=== PATIENT | male | born 1935 | race Caucasian/White ===

== ENCOUNTER 2021-11-15 11:10 | Emergency (ER) | payer MEDICARE ==
[2021-11-15] MEDS ORDERED: BABY ASPIRIN 81 MG CHEW PO ONE (11:15)
[2021-11-15 11:29] LABS: Absolute Neutrophil Ct (ANC) 5.02 x10^3/uL (1.4-6.9); Basophil (Absolute #) 0.11 x10^3/uL (0-0.4); Eosinophil % 3.4 % (0.00-5.0); Eosinophil (Absolute #) 0.26 x10^3/uL (0-0.5); Hematocrit 43.2 % (42-50); Hemoglobin 14.7 g/dL (12.5-18.0); Lymphocyte (Absolute #) 1.37 x10^3/uL (1.0-4.6); Lymphocytes % 17.8 % (24.0-44.0); Mean Cell Volume 99.3 fL (78-100); Mean Corpuscular Hemoglobin 33.8 pg (26-32); Mean Platelet Volume 8.5 fL (7.5-11.0); Monocyte (Absolute #) 0.87 x10^3/uL (0.0-1.3); Monocytes % 11.3 % (0.0-12.0); Neutrophil % 65.4 % (36.0-66.0); Platelet Count 271 x10^3/uL (150-450); Red Blood Count 4.35 x10^6/uL (4.1-5.6); Red Cell Distribution Width 13.1 % (11.5-14.0); White Blood Count 7.7 x10^3/uL (4.0-10.5)
--- NOTE | 2021-11-15 11:43 | ERPHSYRPT ---
- History of Present Illness Source: patient Exam Limitations: other (Extremely poor historian) Patient Subjective Stated Complaint: PT states "I woke up this morning with horrible left shoulder, arm and neck pain. I can hardly lift my left arm up it hurts so bad." Triage Nursing Assessment: Pt presented alert and oriented X 3, skin pwd. Pt ambulates with a slow unsteady gait, able to speak in celar full sntences Physician History: 86 yo wm w L shoulder pain since 2:30 AM. He is an extremely poor historian. Pain is 4/10 and woke him up. He denies chest pain and states that pain is worse w L shoulder movement. Pt took a [place] this morning wo relief. He denies dyspnea/N/V/Diaphoresis. Daughter states that he has chronic L shoulder pain. He does not appear to have chest pain but is an extremely poor historian. Pt has a pacer but denies HI. Occurred: other (2:30AM) Method of Injury: other (Chronic L shoulder pain) Quality: constant Severity of Pain-Max: severe Severity of Pain-Current: moderate Extremities Pain Location: shoulder: left Modifying Factors: Improves With: movement Associated Symptoms: neck pain, No back pain, No chills, No chest discomfort, No chest pain, No dyspnea, No fever, No jaw pain, No nausea, No sweating, No short of breath, No vomiting Allergies/Adverse Reactions: No Known Drug Allergies Allergy (Verified 11/15/21 11:19) Home Medications: Apixaban [Eliquis 5 mg Tablet] 5 mg PO BID 11/15/21 [History] Hydrocodone/Acetaminophen [Hydrocodone-Acetamin 10-325 mg] 1 each PO BID 11/15/21 [History] Oxybutynin Chloride 10 mg Xl [Ditropan Xl 10 MG] 10 mg PO DAILY 11/15/21 [History] Tamsulosin HCl 0.4 mg [Flomax 0.4 MG] 0.4 mg PO DAILY 11/15/21 [History] Hx Tetanus, Diphtheria Vaccination/Date Given: Yes Hx Influenza Vaccination/Date Given: Yes Hx Pneumococcal Vaccination/Date Given: No Immunizations Up to Date: Yes Travel Risk - International Travel Have you traveled outside of the country in past 3 weeks: No - Coronavirus Screening Are you exhibiting any of the following symptoms?: No Close contact with a COVID-19 positive Pt in past 14-21 Days: No - Vaccine Status Have you recieved a Covid-19 vaccination: Yes Spa Associate: Unknown - Vaccination Dates Dates if Unknown: 2020 - Review of Systems Constitutional: No Symptoms Eyes: No Symptoms Ears, Nose, & Throat: No Symptoms Respiratory: No Symptoms Cardiac: No Symptoms Abdominal/Gastrointestinal: No Symptoms Genitourinary Symptoms: No Symptoms Musculoskeletal: Arthralgias (L shoulder) Skin: No Symptoms Neurological: No Symptoms Psychological: No Symptoms Endocrine: No Symptoms Hematologic/Lymphatic: No Symptoms Immunological/Allergic: No Symptoms - Past Medical History Pertinent Past Medical History: Yes Neurological History: No Pertinent History ENT History: Cataracts Cardiac History: Coronary Artery Disease, Other Respiratory History: No Pertinent History Endocrine Medical History: No Pertinent History Musculoskeletal History: Arthritis GI Medical History: No Pertinent History History: No Pertinent History Psycho-Social History: No Pertinent History Male Reproductive Disorders: No Pertinent History - Past Surgical History Past Surgical History: Yes Other Surgical History: pacemaker. left leg below knee amputation - Social History Smoking Status: Former smoker Exposure to second hand smoke: No Drug Use: none Patient Lives Alone: No - Nursing Vital Signs Nursing Vital Signs: Initial Vital Signs Temperature 98.6 F 11/15/21 11:11 Pulse Rate 71 11/15/21 11:11 Respiratory Rate 22 11/15/21 11:11 Blood Pressure 149/94 11/15/21 11:11 O2 Sat by Pulse Oximetry 96 11/15/21 11:11 Pain Scale Pain Intensity 0 Hypertensive - Physical Exam General Appearance: no apparent distress Eyes, Ears, Nose, Throat Exam: normal ENT inspection, TMs normal, pharynx normal, moist mucous membranes Neck Exam: normal inspection, non-tender, supple, full range of motion, No Brudzinski, No Kernig's, No meningismus Cardiovascular/Respiratory Exam: chest non-tender, normal breath sounds, regular rate/rhythm, heart sounds normal Abdominal Exam: non-tender, soft Back Exam: normal inspection (No T or L-spine TTP) Shoulder Exam: bone tenderness (L shoulder TTP/Pain w abduction) Elbow/Forearm Exam: normal inspection, non-tender, no evidence of injury Wrist Exam: normal inspection, non-tender, no evidence of injury Hand Exam: normal inspection, non-tender, no evidence of injury Neuro/Tendon Exam: normal sensation, normal motor functions, normal tendon functions, responds to pain, no evidence tendon injury Mental Status Exam: alert, cooperative Skin Exam: normal color, warm, dry SpO2 Interpretation: normal SpO2: 96 O2 Delivery: Room Air - Course Nursing assessment & vital signs reviewed: Yes EKG Interpreted by Me: RATE (NSR/Rate 71/Paced/Prolonged QTc/No acute ST segment changes) - Radiology Exams Chest X-ray Interpretation: Discussed w/ radiologist (Pacer/L shouler prosthesis/Nothing acute) Ordered Tests: Active Orders 24 hr Category Date Time Status EKG-ER Only STAT Care 11/15/21 11:12 Completed CHEST 1 VIEW (PORTABLE) Stat Exams 11/15/21 11:13 Completed CBC W DIFF Stat Lab 11/15/21 11:20 Completed CMP Stat Lab 11/15/21 11:20 Completed MAGNESIUM Stat Lab 11/15/21 11:20 Completed NT PRO BNP Stat Lab 11/15/21 11:20 Completed PROTIME WITH INR Stat Lab 11/15/21 11:20 Completed PTT Stat Lab 11/15/21 11:20 Completed TROPONIN Q3H Lab 11/15/21 11:20 Completed TROPONIN Q3H Lab 11/15/21 14:25 Completed TROPONIN Q3H Lab 11/15/21 17:15 Ordered TROPONIN Q3H Lab 11/15/21 20:15 Ordered TROPONIN Q3H Lab 11/15/21 23:15 Ordered UA W/RFX CULTURE Stat Lab 11/15/21 14:21 Completed Medication Summary Discontinued Medications Generic Name Dose Route Start Last Admin Trade Name Queq PRN Reason Stop Dose Admin Aspirin 324 mg 11/15/21 11:15 11/15/21 11:22 Aspirin 81 Mg Tab.Chew PO 11/15/21 11:16 324 mg STAT ONE Administration Aspirin Confirm 11/15/21 11:51 Aspirin 81 Mg Tab.Chew Administered 11/15/21 11:52 Dose 324 mg .ROUTE .STK-MED ONE Fentanyl Citrate 25 mcg 11/15/21 12:25 11/15/21 12:29 Fentanyl Citrate 100 Mcg/2 Ml* Vial IV 11/15/21 12:26 25 mcg STAT ONE Administration Fentanyl Citrate Confirm 11/15/21 12:27 Fentanyl Citrate 100 Mcg/2 Ml* Vial Administered 11/15/21 12:28 Dose 100 mcg .ROUTE .STK-MED ONE Fentanyl Citrate 25 mcg 11/15/21 15:16 11/15/21 15:24 Fentanyl Citrate 100 Mcg/2 Ml* Vial IV 11/15/21 15:17 25 mcg STAT ONE Administration Fentanyl Citrate Confirm 11/15/21 15:23 Fentanyl Citrate 100 Mcg/2 Ml* Vial Administered 11/15/21 15:24 Dose 100 mcg .ROUTE .STK-MED ONE Ondansetron HCl 4 mg 11/15/21 12:25 11/15/21 12:36 Ondansetron Hcl 4 Mg/2 Ml Vial IV 11/15/21 12:26 4 mg STAT ONE Administration Ondansetron HCl Confirm 11/15/21 12:35 Ondansetron Hcl 4 Mg/2 Ml Vial Administered 11/15/21 12:36 Dose 4 mg .ROUTE .STK-MED ONE Lab/Rad Data: Laboratory Result Diagrams 11/15/21 11:20 11/15/21 11:20 Laboratory Results 11/15/21 11/15/21 11/15/21 Range/Units 14:25 14:21 13:30 WBC (4.0-10.5) x10^3/uL RBC (4.1-5.6) x10^6/uL Hgb (12.5-18.0) g/dL Hct (42-50) % MCV (78-100) fL MCH (26-32) pg MCHC (32-36) g/dL RDW (11.5-14.0) % Plt Count (150-450) x10^3/uL MPV (7.5-11.0) fL Gran % (36.0-66.0) % Immature Gran % (Auto) (0.00-0.4) % Nucleat RBC Rel Count (0.00-0.1) % Eos # (Auto) (0-0.5) x10^3/uL Immature Gran # (Auto) (0.00-0.03) x10^3u/L Absolute Lymphs (auto) (1.0-4.6) x10^3/uL Absolute Monos (auto) (0.0-1.3) x10^3/uL Absolute Nucleated RBC (0.00-0.01) x10^3u/L Lymphocytes % (24.0-44.0) % Monocytes % (0.0-12.0) % Eosinophils % (0.00-5.0) % Basophils % (0.0-0.4) % Absolute Granulocytes (1.4-6.9) x10^3/uL Basophils # (0-0.4) x10^3/uL PT (9.4-12.5) SECONDS INR (0.8-3.0) APTT (25.1-36.5) SECONDS Sodium (137-145) mmol/L Potassium (3.5-5.1) mmol/L Chloride (98-107) mmol/L Carbon Dioxide (22-30) mmol/L Anion Gap (5-15) MEQ/L BUN (9-20) mg/dL Creatinine (0.66-1.25) mg/dL Estimated GFR ML/MIN Glucose (74-106) mg/dL Calcium (8.4-10.2) mg/dL Magnesium (1.6-2.3) mg/dL Total Bilirubin (0.2-1.3) mg/dL AST (17-59) U/L ALT (0-50) U/L Alkaline Phosphatase (38-126) U/L Troponin I 0.017 (0.000-0.034) ng/mL NT-Pro-B Natriuret Pep (0-1800) pg/mL Serum Total Protein (6.3-8.2) g/dL Albumin (3.5-5.0) g/dL Urinalys Dipstick Clnc MAIN LAB Urine Color YELLOW (YELLOW) Urine Appearance CLEAR (CLEAR) Urine pH 6.5 (5-6) Ur Specific [place] 1.010 (1.005-1.025) POC Urine Protein Conf TRACE (Negative) Urine Ketones NEGATIVE (NEGATIVE) Urine Nitrite NEGATIVE (NEGATIVE) Urine Bilirubin NEGATIVE (NEGATIVE) Urine Urobilinogen 0.2 (0-1) mg/dL Urine Leukocytes NEGATIVE (NEGATIVE) Urine WBC (Auto) 0-2 (0-5) /HPF Urine Bacteria (Auto) NONE (NEGATIVE) /HPF Urine RBC NEGATIVE (0-5) Daniel/ul Ur Culture Indicated? NO Urine Glucose NEGATIVE (NEGATIVE) mg/dL Influenza Type A Ag NEGATIVE (NEGATIVE) Influenza Type B Ag NEGATIVE (NEGATIVE) RSV (PCR) NEGATIVE (Negative) SARS-CoV-2 (PCR) POSITIVE A (NEGATIVE) 11/15/21 11/15/21 11/15/21 Range/Units 11:20 11:20 11:20 WBC (4.0-10.5) x10^3/uL RBC (4.1-5.6) x10^6/uL Hgb (12.5-18.0) g/dL Hct (42-50) % MCV (78-100) fL MCH (26-32) pg MCHC (32-36) g/dL RDW (11.5-14.0) % Plt Count (150-450) x10^3/uL MPV (7.5-11.0) fL Gran % (36.0-66.0) % Immature Gran % (Auto) (0.00-0.4) % Nucleat RBC Rel Count (0.00-0.1) % Eos # (Auto) (0-0.5) x10^3/uL Immature Gran # (Auto) (0.00-0.03) x10^3u/L Absolute Lymphs (auto) (1.0-4.6) x10^3/uL Absolute Monos (auto) (0.0-1.3) x10^3/uL Absolute Nucleated RBC (0.00-0.01) x10^3u/L Lymphocytes % (24.0-44.0) % Monocytes % (0.0-12.0) % Eosinophils % (0.00-5.0) % Basophils % (0.0-0.4) % Absolute Granulocytes (1.4-6.9) x10^3/uL Basophils # (0-0.4) x10^3/uL PT 11.4 (9.4-12.5) SECONDS INR 1.08 (0.8-3.0) APTT 28.5 (25.1-36.5) SECONDS Sodium 137 (137-145) mmol/L Potassium 3.9 (3.5-5.1) mmol/L Chloride 102 (98-107) mmol/L Carbon Dioxide 26 (22-30) mmol/L Anion Gap 12.2 (5-15) MEQ/L BUN 14 (9-20) mg/dL Creatinine 1.16 (0.66-1.25) mg/dL Estimated GFR > 60.0 ML/MIN Glucose 118 H (74-106) mg/dL Calcium 9.1 (8.4-10.2) mg/dL Magnesium 2.0 (1.6-2.3) mg/dL Total Bilirubin 0.70 (0.2-1.3) mg/dL AST 22 (17-59) U/L ALT 15 (0-50) U/L Alkaline Phosphatase 65 (38-126) U/L Troponin I 0.020 (0.000-0.034) ng/mL NT-Pro-B Natriuret Pep 472 (0-1800) pg/mL Serum Total Protein 6.3 (6.3-8.2) g/dL Albumin 3.4 L (3.5-5.0) g/dL Urinalys Dipstick Clnc Urine Color (YELLOW) Urine Appearance (CLEAR) Urine pH (5-6) Ur Specific [place] (1.005-1.025) POC Urine Protein Conf (Negative) Urine Ketones (NEGATIVE) Urine Nitrite (NEGATIVE) Urine Bilirubin (NEGATIVE) Urine Urobilinogen (0-1) mg/dL Urine Leukocytes (NEGATIVE) Urine WBC (Auto) (0-5) /HPF Urine Bacteria (Auto) (NEGATIVE) /HPF Urine RBC (0-5) Daniel/ul Ur Culture Indicated? Urine Glucose (NEGATIVE) mg/dL Influenza Type A Ag (NEGATIVE) Influenza Type B Ag (NEGATIVE) RSV (PCR) (Negative) SARS-CoV-2 (PCR) (NEGATIVE) 11/15/21 Range/Units 11:20 WBC 7.7 (4.0-10.5) x10^3/uL RBC 4.35 (4.1-5.6) x10^6/uL Hgb 14.7 (12.5-18.0) g/dL Hct 43.2 (42-50) % MCV 99.3 (78-100) fL MCH 33.8 H (26-32) pg MCHC 34.0 (32-36) g/dL RDW 13.1 (11.5-14.0) % Plt Count 271 (150-450) x10^3/uL MPV 8.5 (7.5-11.0) fL Gran % 65.4 (36.0-66.0) % Immature Gran % (Auto) 0.7 H (0.00-0.4) % Nucleat RBC Rel Count 0.0 (0.00-0.1) % Eos # (Auto) 0.26 (0-0.5) x10^3/uL Immature Gran # (Auto) 0.05 H (0.00-0.03) x10^3u/L Absolute Lymphs (auto) 1.37 (1.0-4.6) x10^3/uL Absolute Monos (auto) 0.87 (0.0-1.3) x10^3/uL Absolute Nucleated RBC 0.00 (0.00-0.01) x10^3u/L Lymphocytes % 17.8 L (24.0-44.0) % Monocytes % 11.3 (0.0-12.0) % Eosinophils % 3.4 (0.00-5.0) % Basophils % 1.4 (0.0-0.4) % Absolute Granulocytes 5.02 (1.4-6.9) x10^3/uL Basophils # 0.11 (0-0.4) x10^3/uL PT (9.4-12.5) SECONDS INR (0.8-3.0) APTT (25.1-36.5) SECONDS Sodium (137-145) mmol/L Potassium (3.5-5.1) mmol/L Chloride (98-107) mmol/L Carbon Dioxide (22-30) mmol/L Anion Gap (5-15) MEQ/L BUN (9-20) mg/dL Creatinine (0.66-1.25) mg/dL Estimated GFR ML/MIN Glucose (74-106) mg/dL Calcium (8.4-10.2) mg/dL Magnesium (1.6-2.3) mg/dL Total Bilirubin (0.2-1.3) mg/dL AST (17-59) U/L ALT (0-50) U/L Alkaline Phosphatase (38-126) U/L Troponin I (0.000-0.034) ng/mL NT-Pro-B Natriuret Pep (0-1800) pg/mL Serum Total Protein (6.3-8.2) g/dL Albumin (3.5-5.0) g/dL Urinalys Dipstick Clnc Urine Color (YELLOW) Urine Appearance (CLEAR) Urine pH (5-6) Ur Specific [place] (1.005-1.025) POC Urine Protein Conf (Negative) Urine Ketones (NEGATIVE) Urine Nitrite (NEGATIVE) Urine Bilirubin (NEGATIVE) Urine Urobilinogen (0-1) mg/dL Urine Leukocytes (NEGATIVE) Urine WBC (Auto) (0-5) /HPF Urine Bacteria (Auto) (NEGATIVE) /HPF Urine RBC (0-5) Daniel/ul Ur Culture Indicated? Urine Glucose (NEGATIVE) mg/dL Influenza Type A Ag (NEGATIVE) Influenza Type B Ag (NEGATIVE) RSV (PCR) (Negative) SARS-CoV-2 (PCR) (NEGATIVE) - Progress Progress: improved Progress Note: 11/15/21 15:17 25mcg IV Fentanyl/4mg IV Zofran w improvement in pain Although pain appears to be due to his shoulder, pt has stated that he has and has not had chest pain over the last several days during his ER stay. It was recommended that pt be admitted for observation to rule out HI and make sure that pain is due to his shoulder, but he refuses observation admit at this time. Risks explained to pt including HI/. 25mcg IV Fentanyl before discharge. 11/15/21 16:03 Pt + for CV19 but wo symptoms. He had CV19 in September 2021, so probably residual + test. Counseled pt/family regarding: lab results, diagnosis, need for follow-up, rad results - Departure Departure Disposition: Home Clinical Impression: Shoulder pain, left Condition: Stable Critical Care Time: No Referrals: EVELYN NEWELL [Primary Care Provider] - Follow up/PCP as directed Instructions: Chest Pain (DC), Shoulder Tendinopathy (DC) Additional Instructions: Follow up with your family MD in 1-2 days Return to ER for chest pain, increasing left shoulder pain, or shortness of breath. Continue with home pain meds.
[2021-11-15 11:48] LABS: INR 1.08 (0.8-3.0); PROTIME 11.4 SECONDS (9.4-12.5); PTT 28.5 SECONDS (25.1-36.5)
[2021-11-15 11:50] LABS: ALBUMIN 3.4 g/dL (3.5-5.0); ALKALINE PHOSPHATASE 65 U/L (38-126); ANION GAP 12.2 MEQ/L (5-15); BLOOD UREA NITROGEN 14 mg/dL (9-20); CHLORIDE 102 mmol/L (98-107); Calcium 9.1 mg/dL (8.4-10.2); Carbon Dioxide 26 mmol/L (22-30); Creatinine 1 1.16 mg/dL (0.66-1.25); EST GLOMERULAR FILTRATION RATE > 60.0 ML/MIN; Glucose 118 mg/dL (74-106); NT PRO BNP 472 pg/mL (0-1800); Potassium 3.9 mmol/L (3.5-5.1); SGOT/AST 22 U/L (17-59); SGPT/ALT 15 U/L (0-50); SODIUM 137 mmol/L (137-145); Total Protein 6.3 g/dL (6.3-8.2)
[2021-11-15] MEDS ORDERED: BABY ASPIRIN 81 MG CHEW ONE (11:51)
[2021-11-15] MEDS ORDERED: Zofran 4 MG/2 ML VIAL IV ONE (12:25)
[2021-11-15] MEDS ORDERED: SUBLIMAZE 100 MCG/2 ML IV ONE ×2 (12:25→15:16)
[2021-11-15] MEDS ORDERED: SUBLIMAZE 100 MCG/2 ML ONE ×2 (12:27→15:23)
[2021-11-15] MEDS ORDERED: Zofran 4 MG/2 ML VIAL ONE (12:35)
[2021-11-15 14:02] LABS: INFLUENZA A NEGATIVE (NEGATIVE); INFLUENZA B NEGATIVE (NEGATIVE); RESPIRATORY SYNCTIAL VIRUS NEGATIVE (Negative)
[2021-11-15 14:07] LABS: SARS-CoV-2 Xpert Express POSITIVE (NEGATIVE)
[2021-11-15 14:20] LABS: WBC 0-2 /HPF (0-5)
[2021-11-15 14:21] LABS: Appearance CLEAR (CLEAR); Bilirubin NEGATIVE (NEGATIVE); Glucose NEGATIVE (NEGATIVE); Ketones NEGATIVE (NEGATIVE); Nitrite NEGATIVE (NEGATIVE); Ph 6.5 (5-6); Protein,Urine Dip TRACE (Negative); RBC NEGATIVE Ery/ul (0-5); Urine Cultured Indicated? NO; Urobilinogen 0.2 mg/dL (0-1)
[2021-11-15 14:23] LABS: Dipstick done @ ? MAIN LAB
[2021-11-15 15:06] VITALS: BP 157/96
--- NOTE | 2021-11-15 15:22 | XRAY ---
ONE VIEW CHEST: [AP upright portable one view] COMPARISON: [None.] INDICATION: 86-year-old male with chest pain. FINDINGS: The transverse heart size is normal. I note some coronary artery calcification overlying the left side of the heart. A left-sided cardiac pacemaker is seen with intact bipolar leads, one extending toward the right atrium and the other extending toward the right ventricle. A calcified, moderately tortuous ascending and descending thoracic aorta are seen. Some mild aneurysmal distention of the mid descending thoracic aorta cannot be excluded on this portable chest film. The remainder of the faye and mediastinal structures appear unremarkable. There is mild elevation of the left hemidiaphragm. I believe there is some minimal transverse linear scarring/subsegmental atelectasis adjacent to the left hemidiaphragmatic surface. Otherwise, the peripheral lungs reveal no air space infiltrates, vascular congestion, pneumothorax, or pleural fluid. A left shoulder arthroplasty is partially seen at the edge of the film. There is moderate narrowing of the right glenohumeral joint space with some associated marginal spurring consistent with moderate right shoulder joint osteoarthritis. There is slight convexity of the lower thoracic spine toward the left. Thoracic osteophyte formation is seen within the lower thoracic spine. IMPRESSION: 1. I see no acute cardiopulmonary disease. 2. Left-sided cardiac pacemaker with dual leads and left shoulder arthroplasty device are noted. 3. Mild elevation of the left hemidiaphragm with minimal transverse linear scarring/subsegmental atelectasis adjacent to the left hemidiaphragmatic surface. 4. Calcified, moderately tortuous thoracic aorta. Some aneurysmal distention of the mid descending thoracic aorta cannot be excluded on this portable chest radiograph. 5. Skeletal findings, as discussed above.
[2021-11-15 15:26] VITALS: PULSE 71
[2021-11-15 16:05] VITALS: O2SAT 96
== END 2021-11-15 15:29 | disposition home or self-care (01) ==
LOC: ED 11:10
DX: M25.512 Pain in left shoulder (principal); Z79.01 Long term (current) use of anticoagulants; Z79.891 Long term (current) use of opiate analgesic; Z79.899 Other long term (current) drug therapy; Z86.16 Personal history of COVID-19; Z95.0 Presence of cardiac pacemaker; Z20.828 Contact with and (suspected) exposure to other viral communicable diseases
CPT/HCPCS: 0241U; 36000; 36415; 71045; 80053; 81015; 83735; 83880; 84484; 85025; 85610; 85730; 93005; 96374; 96375; 96376; 99284; J2405; J3010; A9270-GY

== ENCOUNTER 2022-02-18 09:25 | Emergency (ER) | payer MEDICARE ==
[2022-02-18] MEDS ORDERED: TORAdol 30 mg Injection IV ONE (10:00)
[2022-02-18] MEDS ORDERED: Sodium Chloride 0.9% 1000 ML 1,000 ML IV SCH (10:00)
--- NOTE | 2022-02-18 10:00 | ERPHSYRPT ---
- History of Present Illness Time Seen by Provider: 02/18/22 09:40 Source: patient, family Exam Limitations: no limitations Patient Subjective Stated Complaint: dizziness, shakiness onset last night Triage Nursing Assessment: pt to ED c/o dizziness and intermittent shaking of hands onset last night. pt denies falling or injuries. pt denies pain at this time. daughter at bedside and reports that he recently started donepezil on 01/25/22 and is wondering if that may be causing these issues. pt also reports foul smelling urine. A&Ox3. pt ambulates with cane normally and was assist x1 to bed from . 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 Physician History: Patient is an 86-year-old male who presents with dizziness and shaking. He denies any vertiginous symptoms says he is just lightheaded and walked into the side of the door going to the bathroom this morning. He was recently started on doonepezil. He denies any fever chills sweats he has had some chest pain which is substernal in location and headache.His family reports that his urine has been very foul-smelling. The patient himself feels like he may have a kidney stone with right flank pain despite the fact he told nursing staff that he had n o pain and told me that initially as well. Timing/Duration: today Severity: moderate Modifying Factors: Improves With: movement Associated Symptoms: abdominal pain, chest pain Allergies/Adverse Reactions: No Known Drug Allergies Allergy (Verified 02/18/22 09:33) Home Medications: Apixaban [Eliquis 5 mg Tablet] 5 mg PO BID 11/15/21 [History] Hydrocodone/Acetaminophen [Hydrocodone-Acetamin 10-325 mg] 1 each PO BID 11/15/21 [History] Oxybutynin Chloride 10 mg Xl [Ditropan Xl 10 MG] 10 mg PO DAILY 11/15/21 [History] Tamsulosin HCl 0.4 mg [Flomax 0.4 MG] 0.4 mg PO DAILY 11/15/21 [History] Hx Tetanus, Diphtheria Vaccination/Date Given: Yes Hx Influenza Vaccination/Date Given: Yes Hx Pneumococcal Vaccination/Date Given: No Immunizations Up to Date: Yes Travel Risk - International Travel Have you traveled outside of the country in past 3 weeks: No - Coronavirus Screening Are you exhibiting any of the following symptoms?: No Close contact with a COVID-19 positive Pt in past 14-21 Days: No - Vaccine Status Have you recieved a Covid-19 vaccination: Yes Artificial Breast Fabricator: Unknown - Vaccination Dates Date of 2cond Vaccination (if applicable): 2021 Dates if Unknown: 2021 - Review of Systems Constitutional: Weakness, Other (Tremors), No Fever, No Chills Eyes: No Symptoms Ears, Nose, & Throat: No Symptoms Respiratory: No Cough, No Dyspnea Cardiac: Chest Pain, No Edema, No Syncope Abdominal/Gastrointestinal: Abdominal Pain, No Nausea, No Vomiting, No Diarrhea Genitourinary Symptoms: No Dysuria Musculoskeletal: No Back Pain, No Neck Pain Skin: No Rash Neurological: No Dizziness, No Focal Weakness, No Sensory Changes Psychological: No Symptoms Endocrine: No Symptoms Hematologic/Lymphatic: No Symptoms Immunological/Allergic: No Symptoms All Other Systems: Reviewed and Negative - Past Medical History Pertinent Past Medical History: Yes Neurological History: No Pertinent History ENT History: Cataracts Cardiac History: Coronary Artery Disease, Other Respiratory History: No Pertinent History Endocrine Medical History: No Pertinent History Musculoskeletal History: Arthritis GI Medical History: No Pertinent History History: No Pertinent History Psycho-Social History: No Pertinent History Male Reproductive Disorders: No Pertinent History - Past Surgical History Past Surgical History: Yes Other Surgical History: pacemaker. left leg below knee amputation - Social History Smoking Status: Former smoker Exposure to second hand smoke: No Drug Use: none Patient Lives Alone: No () - Nursing Vital Signs Nursing Vital Signs: Initial Vital Signs Temperature 97.6 F 02/18/22 09:34 Pulse Rate 65 02/18/22 09:34 Respiratory Rate 18 02/18/22 09:34 Blood Pressure 143/84 02/18/22 09:34 O2 Sat by Pulse Oximetry 96 02/18/22 09:34 Pain Scale Pain Intensity 2 - Physical Exam General Appearance: mild distress Eye Exam: PERRL/EOMI, eyes nml inspection Ears, Nose, Throat Exam: normal ENT inspection, TMs normal, pharynx normal, moist mucous membranes Neck Exam: normal inspection, non-tender, supple, full range of motion Respiratory Exam: normal breath sounds, lungs clear, No respiratory distress Cardiovascular Exam: regular rate/rhythm, normal heart sounds, normal peripheral pulses Gastrointestinal/Abdomen Exam: soft, normal bowel sounds, No tenderness, No mass Back Exam: normal inspection, normal range of motion, No CVA tenderness, No vertebral tenderness Extremity Exam: normal inspection, normal range of motion, pelvis stable Neurologic Exam: alert, oriented x 3, cooperative, normal mood/affect, nml cerebellar function, nml station & gait, sensation nml, No motor deficits Skin Exam: normal color, warm, dry, No rash Lymphatic Exam: No adenopathy SpO2 Interpretation: normal SpO2: 96 O2 Delivery: Room Air - Course Nursing assessment & vital signs reviewed: Yes EKG Interpreted by Me: RATE (61 Rhythm is from a dual lead pacemaker) - Radiology Exams Chest X-ray Interpretation: Negative - CT Exams Head CT Interpretation: Other (No acute changes) Abdomen/Pelvis CT Interpretation: Other (Some fecal stasis but otherwise negative) Ordered Tests: Active Orders 24 hr Category Date Time Status EKG-ER Only STAT Care 02/18/22 10:00 Active IV Insertion STAT Care 02/18/22 10:00 Active ABDOMEN AND PELVIS W/0 CONTRAS [CT] Stat Exams 02/18/22 10:00 Completed CHEST 1 VIEW (PORTABLE) Stat Exams 02/18/22 10:00 Completed HEAD WITHOUT CONTRAST [CT] Stat Exams 02/18/22 10:03 Completed AMYLASE Stat Lab 02/18/22 09:37 Completed BLOOD CULTURE Stat Lab 02/18/22 10:22 Received CBC W DIFF Stat Lab 02/18/22 09:37 Completed CMP Stat Lab 02/18/22 09:37 Completed LIPASE Stat Lab 02/18/22 09:37 Completed Lactic Acid Stat Lab 02/18/22 10:10 Completed Lactic Acid Stat Lab 02/18/22 12:12 Received PROTIME WITH INR Stat Lab 02/18/22 09:37 Completed TROPONIN Q4H Lab 02/18/22 09:37 Completed TROPONIN Q4H Lab 02/18/22 14:00 Ordered TROPONIN Q4H Lab 02/18/22 18:00 Ordered UA W/RFX CULTURE Stat Lab 02/18/22 11:45 Completed Medication Summary Generic Name Dose Route Start Last Admin Trade Name Freq PRN Reason Stop Dose Admin Sodium Chloride 1,000 mls @ 100 mls/hr 02/18/22 10:00 02/18/22 10:08 Sodium Chloride 0.9% 1000 Ml IV 03/20/22 09:59 100 mls/hr .Q10H ZULY Administration Discontinued Medications Generic Name Dose Route Start Last Admin Trade Name Vance PRN Reason Stop Dose Admin Ketorolac Tromethamine 30 mg 02/18/22 10:00 02/18/22 10:08 Ketorolac Tromethamine 30 Mg/Ml Inj IV 02/18/22 10:01 30 mg STAT ONE Administration Ketorolac Tromethamine Confirm 02/18/22 10:07 Ketorolac Tromethamine 30 Mg/Ml Inj Administered 02/18/22 10:08 Dose 30 mg .ROUTE .K-MED ONE Lab/Rad Data: Laboratory Result Diagrams 02/18/22 09:37 02/18/22 09:37 Laboratory Results 02/18/22 02/18/22 02/18/22 Range/Units 11:45 11:38 10:10 WBC (4.0-10.5) x10^3/uL RBC (4.1-5.6) x10^6/uL Hgb (12.5-18.0) g/dL Hct (42-50) % MCV (78-100) fL MCH (26-32) pg MCHC (32-36) g/dL RDW (11.5-14.0) % Plt Count (150-450) x10^3/uL MPV (7.5-11.0) fL Gran % (36.0-66.0) % Immature Gran % (Auto) (0.00-0.4) % Nucleat RBC Rel Count (0.00-0.1) % Eos # (Auto) (0-0.5) x10^3/uL Immature Gran # (Auto) (0.00-0.03) x10^3u/L Absolute Lymphs (auto) (1.0-4.6) x10^3/uL Absolute Monos (auto) (0.0-1.3) x10^3/uL Absolute Nucleated RBC (0.00-0.01) x10^3u/L Lymphocytes % (24.0-44.0) % Monocytes % (0.0-12.0) % Eosinophils % (0.00-5.0) % Basophils % (0.0-0.4) % Absolute Granulocytes (1.4-6.9) x10^3/uL Basophils # (0-0.4) x10^3/uL PT (9.4-12.5) SECONDS INR (0.8-3.0) Sodium (137-145) mmol/L Potassium (3.5-5.1) mmol/L Chloride (98-107) mmol/L Carbon Dioxide (22-30) mmol/L Anion Gap (5-15) MEQ/L BUN (9-20) mg/dL Creatinine (0.66-1.25) mg/dL Estimated GFR ML/MIN Glucose (74-106) mg/dL Lactic Acid 2.6 H (0.4-2.0) Calcium (8.4-10.2) mg/dL Total Bilirubin (0.2-1.3) mg/dL AST (17-59) U/L ALT (0-50) U/L Alkaline Phosphatase (38-126) U/L Troponin I (0.000-0.034) ng/mL Serum Total Protein (6.3-8.2) g/dL Albumin (3.5-5.0) g/dL Amylase (30-110) U/L Lipase (23-300) U/L Urinalys Dipstick Clnc MAIN LAB Urine Color YELLOW (YELLOW) Urine Appearance CLEAR (CLEAR) Urine pH 6.5 (5-6) Ur Specific [place] 1.015 (1.005-1.025) POC Urine Protein Conf 100 (Negative) Urine Ketones NEGATIVE (NEGATIVE) Urine Nitrite NEGATIVE (NEGATIVE) Urine Bilirubin NEGATIVE (NEGATIVE) Urine Urobilinogen 0.2 (0-1) mg/dL Urine Leukocytes NEGATIVE (NEGATIVE) Urine WBC (Auto) 0-2 (0-5) /HPF Urine RBC (Auto) NONE (0-2) /HPF U Epithel Cells (Auto) RARE (FEW) /HPF Urine Bacteria (Auto) Not Reportable Urine RBC NEGATIVE (0-5) Daniel/ul Ur Culture Indicated? NO Urine Glucose NEGATIVE (NEGATIVE) mg/dL Influenza Type A Ag NEGATIVE (NEGATIVE) Influenza Type B Ag NEGATIVE (NEGATIVE) RSV (PCR) NEGATIVE (Negative) SARS-CoV-2 (PCR) NEGATIVE (NEGATIVE) 02/18/22 02/18/22 02/18/22 Range/Units 09:37 09:37 09:37 WBC 6.5 (4.0-10.5) x10^3/uL RBC 4.71 (4.1-5.6) x10^6/uL Hgb 15.4 (12.5-18.0) g/dL Hct 47.0 (42-50) % MCV 99.8 (78-100) fL MCH 32.7 H (26-32) pg MCHC 32.8 (32-36) g/dL RDW 12.8 (11.5-14.0) % Plt Count 292 (150-450) x10^3/uL MPV 9.1 (7.5-11.0) fL Gran % 55.4 (36.0-66.0) % Immature Gran % (Auto) 0.3 (0.00-0.4) % Nucleat RBC Rel Count 0.0 (0.00-0.1) % Eos # (Auto) 0.25 (0-0.5) x10^3/uL Immature Gran # (Auto) 0.02 (0.00-0.03) x10^3u/L Absolute Lymphs (auto) 1.89 (1.0-4.6) x10^3/uL Absolute Monos (auto) 0.61 (0.0-1.3) x10^3/uL Absolute Nucleated RBC 0.00 (0.00-0.01) x10^3u/L Lymphocytes % 29.0 (24.0-44.0) % Monocytes % 9.4 (0.0-12.0) % Eosinophils % 3.8 (0.00-5.0) % Basophils % 2.1 (0.0-0.4) % Absolute Granulocytes 3.61 (1.4-6.9) x10^3/uL Basophils # 0.14 (0-0.4) x10^3/uL PT 11.0 (9.4-12.5) SECONDS INR 1.04 (0.8-3.0) Sodium 136 L (137-145) mmol/L Potassium 3.8 (3.5-5.1) mmol/L Chloride 104 (98-107) mmol/L Carbon Dioxide 31 H (22-30) mmol/L Anion Gap 5.1 (5-15) MEQ/L BUN 14 (9-20) mg/dL Creatinine 1.40 H (0.66-1.25) mg/dL Estimated GFR 51.3 ML/MIN Glucose 95 (74-106) mg/dL Lactic Acid (0.4-2.0) Calcium 8.7 (8.4-10.2) mg/dL Total Bilirubin 0.50 (0.2-1.3) mg/dL AST 15 L (17-59) U/L ALT 15 (0-50) U/L Alkaline Phosphatase 66 (38-126) U/L Troponin I (0.000-0.034) ng/mL Serum Total Protein 6.3 (6.3-8.2) g/dL Albumin 3.4 L (3.5-5.0) g/dL Amylase 75 (30-110) U/L Lipase 49 (23-300) U/L Urinalys Dipstick Clnc Urine Color (YELLOW) Urine Appearance (CLEAR) Urine pH (5-6) Ur Specific [place] (1.005-1.025) POC Urine Protein Conf (Negative) Urine Ketones (NEGATIVE) Urine Nitrite (NEGATIVE) Urine Bilirubin (NEGATIVE) Urine Urobilinogen (0-1) mg/dL Urine Leukocytes (NEGATIVE) Urine WBC (Auto) (0-5) /HPF Urine RBC (Auto) (0-2) /HPF U Epithel Cells (Auto) (FEW) /HPF Urine Bacteria (Auto) Urine RBC (0-5) Daniel/ul Ur Culture Indicated? Urine Glucose (NEGATIVE) mg/dL Influenza Type A Ag (NEGATIVE) Influenza Type B Ag (NEGATIVE) RSV (PCR) (Negative) SARS-CoV-2 (PCR) (NEGATIVE) 02/18/22 Range/Units 09:37 WBC (4.0-10.5) x10^3/uL RBC (4.1-5.6) x10^6/uL Hgb (12.5-18.0) g/dL Hct (42-50) % MCV (78-100) fL MCH (26-32) pg MCHC (32-36) g/dL RDW (11.5-14.0) % Plt Count (150-450) x10^3/uL MPV (7.5-11.0) fL Gran % (36.0-66.0) % Immature Gran % (Auto) (0.00-0.4) % Nucleat RBC Rel Count (0.00-0.1) % Eos # (Auto) (0-0.5) x10^3/uL Immature Gran # (Auto) (0.00-0.03) x10^3u/L Absolute Lymphs (auto) (1.0-4.6) x10^3/uL Absolute Monos (auto) (0.0-1.3) x10^3/uL Absolute Nucleated RBC (0.00-0.01) x10^3u/L Lymphocytes % (24.0-44.0) % Monocytes % (0.0-12.0) % Eosinophils % (0.00-5.0) % Basophils % (0.0-0.4) % Absolute Granulocytes (1.4-6.9) x10^3/uL Basophils # (0-0.4) x10^3/uL PT (9.4-12.5) SECONDS INR (0.8-3.0) Sodium (137-145) mmol/L Potassium (3.5-5.1) mmol/L Chloride (98-107) mmol/L Carbon Dioxide (22-30) mmol/L Anion Gap (5-15) MEQ/L BUN (9-20) mg/dL Creatinine (0.66-1.25) mg/dL Estimated GFR ML/MIN Glucose (74-106) mg/dL Lactic Acid (0.4-2.0) Calcium (8.4-10.2) mg/dL Total Bilirubin (0.2-1.3) mg/dL AST (17-59) U/L ALT (0-50) U/L Alkaline Phosphatase (38-126) U/L Troponin I 0.013 (0.000-0.034) ng/mL Serum Total Protein (6.3-8.2) g/dL Albumin (3.5-5.0) g/dL Amylase (30-110) U/L Lipase (23-300) U/L Urinalys Dipstick Clnc Urine Color (YELLOW) Urine Appearance (CLEAR) Urine pH (5-6) Ur Specific [place] (1.005-1.025) POC Urine Protein Conf (Negative) Urine Ketones (NEGATIVE) Urine Nitrite (NEGATIVE) Urine Bilirubin (NEGATIVE) Urine Urobilinogen (0-1) mg/dL Urine Leukocytes (NEGATIVE) Urine WBC (Auto) (0-5) /HPF Urine RBC (Auto) (0-2) /HPF U Epithel Cells (Auto) (FEW) /HPF Urine Bacteria (Auto) Urine RBC (0-5) Daniel/ul Ur Culture Indicated? Urine Glucose (NEGATIVE) mg/dL Influenza Type A Ag (NEGATIVE) Influenza Type B Ag (NEGATIVE) RSV (PCR) (Negative) SARS-CoV-2 (PCR) (NEGATIVE) - Progress Progress: improved Progress Note: 02/18/22 12:51 Discussed negative findings with family we will hold off on his new medication. - Departure Departure Disposition: Home Clinical Impression: Medication reaction Condition: Stable Critical Care Time: No Referrals: EVELYN NEWELL [Primary Care Provider] - Follow up/PCP as directed Instructions: Adverse Drug Reactions, Adult (DC) Additional Instructions: Stop donepezil.
[2022-02-18] MEDS ORDERED: Sodium Chloride 0.9% 1000 ML 1,000 ML ONE (10:07)
[2022-02-18] MEDS ORDERED: TORAdol 30 mg Injection ONE (10:07)
[2022-02-18 10:38] LABS: Absolute Neutrophil Ct (ANC) 3.61 x10^3/uL (1.4-6.9); Basophil (Absolute #) 0.14 x10^3/uL (0-0.4); Eosinophil % 3.8 % (0.00-5.0); Eosinophil (Absolute #) 0.25 x10^3/uL (0-0.5); Hemoglobin 15.4 g/dL (12.5-18.0); Lymphocyte (Absolute #) 1.89 x10^3/uL (1.0-4.6); Mean Cell Volume 99.8 fL (78-100); Mean Corpuscular Hemoglobin 32.7 pg (26-32); Mean Corpuscular Hgb Concent. 32.8 g/dL (32-36); Mean Platelet Volume 9.1 fL (7.5-11.0); Monocyte (Absolute #) 0.61 x10^3/uL (0.0-1.3); Monocytes % 9.4 % (0.0-12.0); Neutrophil % 55.4 % (36.0-66.0); Platelet Count 292 x10^3/uL (150-450); Red Blood Count 4.71 x10^6/uL (4.1-5.6); Red Cell Distribution Width 12.8 % (11.5-14.0); White Blood Count 6.5 x10^3/uL (4.0-10.5)
[2022-02-18 11:25] LABS: INR 1.04 (0.8-3.0)
--- NOTE | 2022-02-18 11:34 | XRAY ---
Indication: Shaking and dizziness. Multiple contiguous axial images obtained through the head without contrast. Comparison: None Age-appropriate global atrophy and moderate/advanced periventricular degenerative micro-ischemia bilaterally. No acute intracranial hemorrhage, abnormal extra-axial fluid collection, or mass effect. Fourth ventricle is midline. Bony calvarium intact. Complete opacification left maxillary sinus. Remaining visualized paranasal sinuses and mastoid air cells are clear. Impression: Nonacute senile brain with incidental left maxillary sinus disease.
--- NOTE | 2022-02-18 11:41 | XRAY ---
Indication: Right flank pain and dizziness. Comparison: November 15, 2021 Portable chest unchanged again demonstrating mild left hemidiaphragm elevation with minimal adjacent subsegmental atelectasis/scarring. No focal infiltrate, consolidation, or large effusion. Heart not enlarged again with left pacemaker and tortuous descending aorta. Bony thorax intact again with osteopenia, degenerative changes, and left shoulder arthroplasty. Impression: Continued nonacute chest with chronic features.
--- NOTE | 2022-02-18 11:41 | XRAY ---
Indication: Right flank pain. No AAA. Multiple contiguous axial images obtained through the abdomen and pelvis without contrast. Comparison: None Lung bases hyperinflated without focal infiltrate, consolidation, or effusion. Heart not enlarged with partially visualized pacer leads. Noncontrasted stomach and bowel loops appear nonobstructed with normal appendix. Mild diffuse scattered colonic fecal debris greatest in right hemicolon. No free fluid/air. A few nonobstructing bilateral renal calculi, largest 8mm on the right. A few small bilateral exophytic renal cysts, largest 1.4 cm on the right appearing partially calcified. 4 cm right urinary bladder diverticulum. A few tiny hepatic/splenic calcified granulomas. Previous cholecystectomy. Remaining liver, pancreas, spleen, adrenal glands, kidneys, ureters, and bladder appear unremarkable for noncontrast exam. Extensive arteriosclerotic calcifications. Distal AAA measuring at least 5.3 x 5.1 x 5.3 cm. Lack of IV contrast precludes further characterization. Osseous structures intact with osteopenia, mild/moderate degenerative changes throughout the thoracolumbar spine, and mild dextroscoliosis centered at L3. Impression: 1. Mild diffuse fecal stasis, nonobstructing bilateral renal micro-calculi, small bilateral renal cysts, urinary bladder diverticulum, extensive arteriosclerotic disease with AAA, chronic bony findings, and old granulomatous disease. 2. Remaining CT abdomen/pelvis without contrast exam is negative.
[2022-02-18 11:43] LABS: ALBUMIN 3.4 g/dL (3.5-5.0); ANION GAP 5.1 MEQ/L (5-15); BILIRUBIN,TOTAL 0.5 mg/dL (0.2-1.3); Calcium 8.7 mg/dL (8.4-10.2); Creatinine 1 1.4 mg/dL (0.66-1.25); EST GLOMERULAR FILTRATION RATE 51.3 ML/MIN; Potassium 3.8 mmol/L (3.5-5.1); Total Protein 6.3 g/dL (6.3-8.2)
[2022-02-18 12:03] LABS: Appearance CLEAR (CLEAR); Bilirubin NEGATIVE (NEGATIVE); Dipstick done @ ? MAIN LAB; Epithelial Cells RARE /HPF (FEW); Glucose NEGATIVE (NEGATIVE); Ketones NEGATIVE (NEGATIVE); Nitrite NEGATIVE (NEGATIVE); Ph 6.5 (5-6); Protein,Urine Dip 100 (Negative); RBC NEGATIVE Ery/ul (0-5); Specific Gravity 1.015 (1.005-1.025); Urobilinogen 0.2 mg/dL (0-1); WBC 0-2 /HPF (0-5)
[2022-02-18 12:07] VITALS: BP 136/74
[2022-02-18 12:07] LABS: Urine Cultured Indicated? NO
[2022-02-18 12:14] LABS: INFLUENZA A NEGATIVE (NEGATIVE); INFLUENZA B NEGATIVE (NEGATIVE); RESPIRATORY SYNCTIAL VIRUS NEGATIVE (Negative); SARS-CoV-2 Xpert Express NEGATIVE (NEGATIVE)
[2022-02-18 13:02] VITALS: PULSE 92; O2SAT 98
== END 2022-02-18 13:14 | disposition home or self-care (01) ==
LOC: ED 09:25
DX: R42 Dizziness and giddiness (principal); T44.1X5A Adverse effect of other parasympathomimetics [cholinergics], initial encounter; R07.9 Chest pain, unspecified; R51.9 Headache, unspecified; I25.10 Atherosclerotic heart disease of native coronary artery without angina pectoris; Z79.01 Long term (current) use of anticoagulants; Z79.891 Long term (current) use of opiate analgesic; Z79.899 Other long term (current) drug therapy; Z20.828 Contact with and (suspected) exposure to other viral communicable diseases
CPT/HCPCS: 0241U; 36000; 36415; 70450; 71045; 74176; 80053; 81015; 82150; 83605; 83690; 84484; 85025; 85610; 87040; 93005; 96374; 99284; J1885

== ENCOUNTER 2023-01-15 02:20 | Emergency (ER) | payer MEDICARE ==
[2023-01-15 02:48] VITALS: TEMP 97.4
[2023-01-15 03:02] VITALS: PULSE 62; O2SAT 97
[2023-01-15 03:19] LABS: Appearance Clear (Clear); Bacteria None Seen /HPF (None Seen); Bilirubin Negative (Negative); Blood Negative (Negative); Epithelial Cells None Seen /HPF (None Seen); Glucose, Urine Negative (Negative); Hyaline Casts NONE SEEN /LPF (0-2); Ketones Negative (Negative); Leukocyte Esterase Negative (Negative); Nitrite Negative (Negative); Ph 6.5 (4.6-8.0); Protein,Urine Dip 100 (Negative); RBC 0-2 /HPF (0-5); WBC 0-2 /HPF (0-5)
[2023-01-15 03:21] LABS: ADD URINE CULTURE? NO (NO)
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
[2023-01-15 04:01] VITALS: BP 151/91; RESP 18
== END 2023-01-15 04:06 | disposition home or self-care (01) ==
LOC: ED 02:20
DX: M54.50 Low back pain, unspecified (principal); Z79.891 Long term (current) use of opiate analgesic; Z79.01 Long term (current) use of anticoagulants; Z79.899 Other long term (current) drug therapy
CPT/HCPCS: 81001; 99282